=== PATIENT | male | born 1970 | race Two or more races ===

== ENCOUNTER 2024-04-09 09:50 | Day surgery (SDC) | payer MEDICAID, SELFPAY ==
[2024-04-09] VITALS (9 sets, daily range): BP systolic 101–133; BP diastolic 64–85; PULSE 57–67; RESP 14–18; TEMP 36.4–36.7; O2SAT 97–100; BMI 25.0
[2024-04-09] MEDS: MIDAZOLAM INJ 1 MG/ML VIAL 2 ML (ASD USE ONLY) 2 MG IV (11:18)
[2024-04-09] MEDS: fentaNYL CIT INJ 50 mCg/ML AMP 2ML (ASD USE ONLY) IV (11:18)
[2024-04-09] MEDS: DiphenhydrAMINE INJ 50 MG/ML VIAL 25 MG IV (11:18)
== END 2024-04-09 12:10 | disposition home or self-care (01) ==
PROVIDERS: PCP Family Medicine; Referring Provider Internal Medicine Gastroenterology; Visit Provider Internal Medicine Gastroenterology
PROC: 0DBE8ZX Excision of Large Intestine, Via Natural or Artificial Opening Endoscopic, Diagnostic (ICD-10-PCS; CPT 45380; principal; 2024-04-09 10:00)
DX: K63.5 Polyp of colon (principal); K64.8 Other hemorrhoids; K57.30 Diverticulosis of large intestine without perforation or abscess without bleeding
CPT/HCPCS: 45380; A4217; A4649; J1200; J2250; J3010